=== PATIENT | female | born 1995 ===

== ENCOUNTER 2024-06-11 01:59 | Inpatient (IN) ==
[2024-06-11] MEDS: OXYTOCIN 10 UNITS/ML VIAL IM ONE (02:35)
[2024-06-11] MEDS: miSOPROStoL 200 MCG TAB PR ONE (02:35)
[2024-06-11] MEDS ORDERED: OXYTOCIN 30 UNITS/NSS 30 UNITS/500 ML BAG IV PRN ×2 (03:08→19:42)
[2024-06-11] MEDS ORDERED: OXYTOCIN 10 UNITS/ML 10ML VIAL IM ONE (03:12)
[2024-06-11 03:41] LABS: Hematocrit (blood only) 31.7 % (37.0-47.0); Hemoglobin 10.2 g/dl (12.0-16.0); Mean Corpuscular Hemoglobin 25.7 pg (25.0-34.0); Mean Corpuscular Hgb Conc 32.2 g/dL (32.0-36.0); Mean Corpuscular Volume 79.8 fL (80.0-100.0); Platelet Count 301 K/uL (130-400); RDW Coefficient of Variation 13.2 % (11.5-14.5); RDW Standard Deviation 37.5 fL (36.4-46.3); Red Blood Count 3.97 M/uL (4.20-5.40); White Blood Count 17.56 K/ul (4.8-10.8)
[2024-06-11 03:58] LABS: Albumin Level 3.1 gm/dl (3.4-5.0); BUN Creatinine Ratio 17.2 (10-20); Bilirubin,Total 0.5 mg/dl (0.2-1.0); Calcium 8.2 mg/dl (8.6-10.3); Total Protein 6.1 gm/dl (6.0-8.3)
[2024-06-11] MEDS: NIFEdipine 10 MG CAP PO STA (04:06)
[2024-06-11] MEDS ORDERED: NIFEdipine EXTENDED REL 30 MG TABCR PO STA (04:06)
[2024-06-11] MEDS ORDERED: LABETALOL HCL IV 5 MG/ML 20ML IV STA (04:06)
[2024-06-11] MEDS: LIDOCAINE 1% LOCAL 20 ML VIAL INFIL PRN (04:07)
[2024-06-11] MEDS: LIDOCAINE 1% LOCAL 20 ML VIAL ONE (04:12)
[2024-06-11] MEDS: LACTATED RINGER'S 1,000 ML IV PRN (04:40)
[2024-06-11] MEDS: MAGNESIUM SULFATE / WTR 40 GM/1,000 ML BAG IV SCH (04:42)
[2024-06-11] MEDS: MAG SULFATE 4GM BOLUS FROM BAG IV ONE (04:44)
[2024-06-11] MEDS: OXYTOCIN 10 UNITS/ML VIAL ONE (05:30)
[2024-06-11] MEDS: NIFEdipine EXTENDED REL 30 MG TABCR PO STA (06:04)
[2024-06-11] MEDS: LABETALOL HCL IV 5 MG/ML 20ML IV STA (06:05)
--- NOTE | 2024-06-11 07:02 | Delivery Summary ---
Vaginal Delivery Summary Date of Service June 11, 2024 Vaginal Delivery Summary and 2nd Degree LAC Patient presented in precipitous labor at 10 cm dilated 100% effaced and +2 station at time of arrival. Patient pushed over 2-3 contractions to deliver the head, shoulders and body quickly followed. was noted to have good tone but without spontaneous cry and a 30 second stimulation with delayed cord clamping was initiated. Cord was then double clamped and cut taken to the waiting nursery staff for evaluation. Cord blood obtained and attention was turned to delivery of placenta which delivered intact three-vessel cord gentle cord traction. On speculum the perineum vagina and cervix was noted be second- degree perineal laceration which was repaired with 3-0 Vicryl and traditional crown stitch. Needle sponge and instrument counts were correct at the completion of the case. Both mother and stable in the immediate post delivery timeframe. No complications noted and blood loss per QBL [facility] Vaginal Delivery Charge Delivery Type Details: and 2nd Degree LAC
--- NOTE | 2024-06-11 07:04 | Obstetrical Progress Note ---
Date of Service June 11, 2024 Assessment & Plan Admission and Anticipated Discharge Date Admission Date: June 11, 2024 Subjective Contacted by nurse after delivery due to acute elevation in blood pressure trending into the severe range. Preeclampsia labs were ordered which were within normal limits. Patient developed sustained blood pressures in severe range and was treated with nifedipine 30 as she did not have an IV at that time. We initiated magnesium and blood pressures were noted to trend down to the mild range again within about 30 minutes after the nifedipine dosing. Patient is denying any preeclampsia symptoms. Will continue to monitor and provide antihypertensive medications as indicated. Results & Data Vital Signs (Past 12 Hours) Vital Signs Temp Pulse Resp BP 06/11/24 04:31 107 H 06/11/24 04:31 184/105 H 06/11/24 04:14 113 H 06/11/24 04:14 170/109 H 06/11/24 03:59 111 H 06/11/24 03:59 173/108 H 06/11/24 03:52 18 06/11/24 03:44 115 H 06/11/24 03:44 174/107 H 06/11/24 03:40 18 06/11/24 03:31 111 H 06/11/24 03:31 168/98 H 06/11/24 03:29 111 H 06/11/24 03:29 168/98 H 06/11/24 03:25 18 06/11/24 03:16 36.6 C 18 06/11/24 03:14 114 H 06/11/24 03:14 163/95 H 06/11/24 03:05 115 H 165/98 H 06/11/24 03:04 113 H 159/102 H 06/11/24 03:03 113 H 166/107 H 06/11/24 03:02 121 H 161/108 H 06/11/24 03:01 110 H 158/104 H 06/11/24 03:00 107 H 155/104 H 06/11/24 02:59 109 H 158/106 H 06/11/24 02:55 18 06/11/24 02:43 112 H 149/76 H 06/11/24 02:42 116 H 175/103 H 06/11/24 02:40 36.6 C 18 PG Care Time/CCT Total # of Minutes Spent Total Time Spent with Patient: Total time spent is greater than 50% in coordination of care (as documented) at patient's floor/unit and/or counseling patient: Coding Level of Care Code None
[2024-06-11 13:10] LABS: Amphetamines+Metham, Urine Pos (Neg); Barbiturates, Urine Neg (Neg); Benzodiazepine, Urine Neg (Neg); Cocaine, Urine Neg (Neg); Fentanyl, Urine Neg (Neg); MDMA (Ecstacy), Urine Neg (Neg); Marijuana, Urine Neg (Neg); Methadone, Urine Neg (Neg); Opiate, Urine Neg (Neg); Phencyclidine, Urine Neg (Neg)
[2024-06-11] MEDS: IBUPROFEN 600 MG TAB PO PRN ×2 (15:27→20:05)
[2024-06-11] MEDS ORDERED: HYDROCORTISONE ACETATE 25 MG SUPP PR PRN (19:42)
[2024-06-11] MEDS ORDERED: bisacodyL 10 MG SUPP PR PRN (19:42)
[2024-06-11] MEDS ORDERED: DIPHTHER/TETAN/PERTUS Vaccine (Tdap, Adol/Adult) 0.5mL IM ONE (19:42)
[2024-06-11] MEDS ORDERED: ACETAMINOPHEN 325 MG TAB PO PRN (19:42)
[2024-06-11] MEDS: DOCUSATE SODIUM 100 MG CAP PO SCH (20:05)
[2024-06-11] MEDS: BENZOCAINE 20% SPRY 85 APPLN/85 GM CAN EXT PRN (20:05)
[2024-06-12] MEDS: LABETALOL HCL IV 5 MG/ML 20ML IV STA (02:24)
[2024-06-12] MEDS: NIFEdipine EXTENDED REL 30 MG TABCR PO SCH (02:30)
[2024-06-12 02:39] LABS: Hematocrit (blood only) 30.2 % (37.0-47.0); Hemoglobin 9.9 g/dl (12.0-16.0); Mean Corpuscular Hemoglobin 26.1 pg (25.0-34.0); Mean Corpuscular Hgb Conc 32.8 g/dL (32.0-36.0); Mean Corpuscular Volume 79.7 fL (80.0-100.0); Mean Platelet Volume 10.3 fL (9.4-12.4); Platelet Count 322 K/uL (130-400); RDW Coefficient of Variation 13.4 % (11.5-14.5); RDW Standard Deviation 38.4 fL (36.4-46.3); Red Blood Count 3.79 M/uL (4.20-5.40); White Blood Count 19.71 K/ul (4.8-10.8)
[2024-06-12] MEDS: LABETALOL HCL IV 5 MG/ML 20ML IV ONE (02:40)
[2024-06-12 03:02] LABS: Albumin Globulin Ratio 1.1 (0.9-2); BUN Creatinine Ratio 8.9 (10-20); Bilirubin,Total 0.2 mg/dl (0.2-1.0); Calcium 6.2 mg/dl (8.6-10.3); Creatinine Clr Calc Pharmacy 158.8 ml/min; Globulin 2.8 gm/dl (2.5-4.0); Magnesium Therapeutic L&D Only 5.2 mg/dL (4.0-8.0); Potassium 3.5 mmol/L (3.5-5.1); Total Protein 5.8 gm/dl (6.0-8.3)
[2024-06-12 06:20] LABS: Hematocrit (blood only) 28.7 % (37.0-47.0); Hemoglobin 9.5 g/dl (12.0-16.0); Mean Corpuscular Hemoglobin 26.3 pg (25.0-34.0); Mean Corpuscular Hgb Conc 33.1 g/dL (32.0-36.0); Mean Corpuscular Volume 79.5 fL (80.0-100.0); Mean Platelet Volume 10.6 fL (9.4-12.4); Platelet Count 312 K/uL (130-400); RDW Coefficient of Variation 13.5 % (11.5-14.5); RDW Standard Deviation 38.3 fL (36.4-46.3); Red Blood Count 3.61 M/uL (4.20-5.40); White Blood Count 17.78 K/ul (4.8-10.8)
--- NOTE | 2024-06-12 07:08 | Obstetrical Progress Note ---
Date of Service June 12, 2024 Subjective Sitting upright in bed, legs dangling, FOB at bedside holding baby. No c omplaints currently, feels much better off Mag, able to walk to BR and void spontaneously, planning to take shower soon. Physical Exam Constitutional Alert, NAD. Respiratory normal respiratory effort; no respiratory distress Cardiovascular Extremities: + edema (trace) Gastrointestinal (Abdomen) Soft, postgravid, fundus @ u Musculoskeletal Neg Lona's Skin No rashes Results & Data Vital Signs (Past 12 Hours) Vital Signs Temp Pulse Resp BP Pulse Ox 06/12/24 07:04 102 H 160/97 H 06/12/24 05:57 99 H 138/89 06/12/24 04:55 100 H 141/93 H 06/12/24 04:45 18 06/12/24 04:42 93 H 96 06/12/24 04:37 96 06/12/24 04:37 91 H 06/12/24 04:37 96 H 152/95 H 06/12/24 04:32 91 H 96 06/12/24 04:27 91 H 97 06/12/24 04:22 94 H 96 06/12/24 04:17 92 H 96 06/12/24 04:12 92 H 96 06/12/24 04:07 99 06/12/24 04:07 104 H 06/12/24 04:07 100 H 150/94 H 06/12/24 04:02 96 H 96 06/12/24 04:00 18 06/12/24 03:57 97 H 96 06/12/24 03:52 98 H 96 06/12/24 03:47 96 H 97 06/12/24 03:42 101 H 97 06/12/24 03:37 101 H 138/89 98 06/12/24 03:32 102 H 96 06/12/24 03:27 100 H 97 06/12/24 03:22 98 H 96 06/12/24 03:17 98 H 97 06/12/24 03:12 98 H 97 06/12/24 03:07 94 H 98 06/12/24 03:05 94 H 135/89 06/12/24 03:02 16 06/12/24 03:02 92 H 97 06/12/24 03:00 93 H 139/89 06/12/24 02:57 95 H 98 06/12/24 02:55 95 H 146/92 H 06/12/24 02:52 98 H 96 06/12/24 02:50 93 H 142/92 H 06/12/24 02:47 94 H 97 06/12/24 02:45 96 H 140/92 06/12/24 02:42 98 H 99 06/12/24 02:40 93 H 134/89 06/12/24 02:40 93 H 134/89 06/12/24 02:37 95 H 97 06/12/24 02:36 90 138/90 06/12/24 02:32 94 H 98 06/12/24 02:27 113 H 98 06/12/24 02:24 112 H 164/97 H 06/12/24 02:24 112 H 164/97 H 06/12/24 02:22 117 H 99 06/12/24 02:17 119 H 99 06/12/24 02:12 112 H 100 06/12/24 02:08 20 06/12/24 02:07 110 H 100 06/12/24 02:04 108 H 159/96 H 06/12/24 02:03 109 H 178/88 H 06/12/24 02:02 109 H 178/90 H 100 06/12/24 01:57 114 H 98 06/12/24 01:52 112 H 98 06/12/24 01:47 112 H 98 06/12/24 01:42 112 H 97 06/12/24 01:37 113 H 98 06/12/24 01:32 110 H 99 06/12/24 01:27 110 H 98 06/12/24 01:22 108 H 98 06/12/24 01:17 105 H 97 06/12/24 01:12 103 H 97 06/12/24 01:07 106 H 97 06/12/24 01:02 110 H 98 06/12/24 01:01 16 06/12/24 01:01 110 H 141/88 H 06/12/24 00:57 107 H 97 06/12/24 00:52 105 H 97 06/12/24 00:47 108 H 97 06/12/24 00:42 114 H 97 06/12/24 00:37 111 H 98 06/12/24 00:32 111 H 99 06/12/24 00:27 112 H 98 06/12/24 00:22 117 H 98 06/12/24 00:17 124 H 97 06/12/24 00:12 115 H 98 06/12/24 00:08 18 06/12/24 00:08 115 H 154/99 H 06/12/24 00:07 116 H 98 06/12/24 00:02 118 H 98 06/11/24 23:57 98 06/11/24 23:57 115 H 06/11/24 23:52 98 06/11/24 23:52 115 H 06/11/24 23:47 98 06/11/24 23:47 113 H 06/11/24 23:42 97 06/11/24 23:42 113 H 06/11/24 23:37 99 06/11/24 23:37 115 H 06/11/24 23:32 99 06/11/24 23:32 111 H 06/11/24 23:27 93 06/11/24 23:27 109 H 06/11/24 23:26 89 L 06/11/24 23:26 115 H 06/11/24 23:22 98 06/11/24 23:22 113 H 06/11/24 23:17 99 06/11/24 23:17 110 H 06/11/24 23:12 99 06/11/24 23:12 107 H 06/11/24 23:07 100 06/11/24 23:07 109 H 06/11/24 23:02 99 06/11/24 23:02 110 H 06/11/24 23:02 109 H 06/11/24 23:02 151/93 H 06/11/24 22:57 97 06/11/24 22:57 111 H 06/11/24 22:52 100 06/11/24 22:52 108 H 06/11/24 22:50 98.2 F 18 06/11/24 22:47 100 06/11/24 22:47 109 H 06/11/24 22:42 100 06/11/24 22:42 104 H 06/11/24 22:37 99 06/11/24 22:37 101 H 06/11/24 22:32 98 06/11/24 22:32 107 H 06/11/24 22:27 97 06/11/24 22:27 99 H 06/11/24 22:22 97 06/11/24 22:22 96 H 06/11/24 22:17 97 06/11/24 22:17 95 H 06/11/24 22:12 98 06/11/24 22:12 97 H 06/11/24 22:07 97 06/11/24 22:07 94 H 06/11/24 22:02 97 06/11/24 22:02 100 H 06/11/24 22:01 99 H 06/11/24 22:01 143/86 H 06/11/24 22:00 16 06/11/24 21:57 97 06/11/24 21:57 98 H 06/11/24 21:52 97 06/11/24 21:52 99 H 06/11/24 21:47 97 06/11/24 21:47 100 H 06/11/24 21:42 97 06/11/24 21:42 104 H 06/11/24 21:37 98 06/11/24 21:37 105 H 06/11/24 21:32 97 06/11/24 21:32 112 H 06/11/24 21:27 97 06/11/24 21:27 106 H 06/11/24 21:22 98 06/11/24 21:22 106 H 06/11/24 21:17 99 06/11/24 21:17 110 H 06/11/24 21:12 98 06/11/24 21:12 108 H 06/11/24 21:07 98 06/11/24 21:07 110 H 06/11/24 21:07 110 H 06/11/24 21:07 152/72 H 06/11/24 21:04 94 06/11/24 21:04 117 H 06/11/24 21:02 98 06/11/24 21:02 113 H 06/11/24 21:02 111 H 06/11/24 21:02 171/105 H 06/11/24 21:00 16 06/11/24 20:57 96 06/11/24 20:57 117 H 06/11/24 20:52 97 06/11/24 20:52 115 H 06/11/24 20:47 98 06/11/24 20:47 112 H 06/11/24 20:42 98 06/11/24 20:42 113 H 06/11/24 20:37 99 06/11/24 20:37 114 H 06/11/24 20:32 98 06/11/24 20:32 114 H 06/11/24 20:27 98 06/11/24 20:27 114 H 06/11/24 20:22 99 06/11/24 20:22 112 H 06/11/24 20:17 99 06/11/24 20:17 112 H 06/11/24 20:16 93 06/11/24 20:16 112 H 06/11/24 20:12 99 06/11/24 20:12 112 H 06/11/24 20:07 98 06/11/24 20:07 115 H 06/11/24 20:02 99 06/11/24 20:02 109 H 06/11/24 20:01 108 H 06/11/24 20:01 140/97 06/11/24 20:00 16 06/11/24 20:00 16 06/11/24 20:00 91 06/11/24 20:00 107 H 06/11/24 19:57 99 06/11/24 19:57 111 H 06/11/24 19:52 99 06/11/24 19:52 110 H 06/11/24 19:47 99 06/11/24 19:47 102 H 06/11/24 19:42 100 06/11/24 19:42 104 H 06/11/24 19:37 100 06/11/24 19:37 108 H 06/11/24 19:35 97.9 F 12 06/11/24 19:32 100 06/11/24 19:32 104 H 06/11/24 19:27 100 06/11/24 19:27 101 H 06/11/24 19:26 91 06/11/24 19:26 111 H 06/11/24 19:22 100 06/11/24 19:22 104 H 06/11/24 19:17 100 06/11/24 19:17 110 H 06/11/24 19:12 100 06/11/24 19:12 104 H 06/11/24 19:07 99 06/11/24 19:07 106 H
[2024-06-12] MEDS: NIFEdipine EXTENDED REL 30 MG TABCR PO STA (07:23)
[2024-06-12] MEDS: PRENATAL VITAMIN 1 TAB PO SCH (07:23)
[2024-06-12] MEDS: bisacodyL 5 MG TABEC PO SCH (20:08)
[2024-06-13 06:14] LABS: Hematocrit (blood only) 32.3 % (37.0-47.0); Hemoglobin 10.5 g/dl (12.0-16.0)
--- NOTE | 2024-06-13 07:38 | Obstetrical Progress Note ---
Date of Service June 13, 2024 Assessment & Plan (1) care and examination: PPD 2 doing well. Is looking forward to discharge. Is now on 60mg ER Procardia, will monitor blood pressures this morning. 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 Is feeling well at the moment. Previously took medications for bipolar disorder, stopped taking all these with her first , and has felt well since so she never restarted. She does not have a primary care physician in the area, nor does she have a psychiatrist. Will ask for psychiatry consult in the hospital prior to her leaving, since she has no outside resources - since if psychosis occurs it would be likely to happen before she'd be able to get established outpatient. She is aware that if she has symptoms, she should present to the ER immediately. Will be checking in with her in OB office on Sunday or Sunday for BP check and will also want to reeval psych symptoms with her at that time. Rx Procardia ER 60mg to [facility]. Subjective Ambulation: ambulating normally Voiding: no voiding problems Diet Tolerance:: regular diet Lochia:: Moderate Review of Systems All systems reviewed & are unremarkable except as noted in HPI & below Physical Exam Constitutional WD/WN, vitals as above no acute distress Respiratory normal respiratory effort Cardiovascular Rate/Rhythm: regular rate and regular rhythm Gastrointestinal (Abdomen) Inspection/Auscultation: abdomen normal to inspection; abdomen not distended Percussion/Palpation: abdomen soft Genitourinary OB Exam Abdomen: + fundal height Fundus: + firm; not tender Results & Data Vital Signs (Past 12 Hours) Vital Signs Temp Pulse Resp BP Pulse Ox O2 Del Method 06/13/24 00:15 36.5 C 112 H 17 141/89 H 100 Room Air 06/12/24 22:14 149/99 H 06/12/24 21:30 156/104 H 06/12/24 20:35 36.7 C 102 H 16 154/104 H 99 Room Air
[2024-06-13] MEDS: NIFEdipine EXTENDED REL 30 MG TABCR PO SCH (08:51)
[2024-06-13] MEDS: NIFEdipine 10 MG CAP PO STA (10:24)
[2024-06-13] MEDS: MEASLES, MUMPS & RUBELLA VIRUS VACCINE (MMR) 0.5ML VIAL SQ ONE (14:38)
--- NOTE | 2024-06-13 15:48 | Obstetrical Progress Note ---
Date of Service June 13, 2024 Assessment & Plan (1) Pre-eclampsia, severe: (2) hypertension: Plan Not pleased with her response to anti-htn. BP remains high. Will given labetalol stat and see how she responds. Not likely good dc candidate with need for further bp management. Will try to visit again soon to address concerns. Based on bp response will dose accordingly. Admission and Anticipated Discharge Date Admission Date: June 11, 2024 Subjective Earlier attempted to visit with pt but she was in BR. Partner in room with baby. Had 60mg XL procardia this am and due to high severe range bp, dosed a 10mg stat fast acting nifedipine. Her bp after that was 130s/80s and planned 4hr bp. Now 4hr bp 154/96. no sx per nurse. history of preeclampsia with severe features (bp) and did get magnesium pp. Results & Data Vital Signs (Past 12 Hours) Vital Signs Temp Pulse Resp BP BP Pulse Ox O2 Del Method 06/13/24 14:15 98.2 F 120 H 16 100 Room Air 06/13/24 11:30 138/85 06/13/24 10:12 155/97 H 150/105 H 06/13/24 08:47 98.1 F 114 H 18 137/100 145/105 H 98 Room Air PG Care Time/CCT Total # of Minutes Spent Total Time Spent with Patient: Total time spent is greater than 50% in coordination of care (as documented) at patient's floor/unit and/or counseling patient: Coding Level of Care Code None Diagnoses Pre-eclampsia, severe O14.10 hypertension O16.5
[2024-06-13] MEDS: LABETALOL HCL 200 MG TAB PO STA (15:57)
[2024-06-13 18:54] VITALS: RESP 18
[2024-06-13] MEDS: LABETALOL HCL 200 MG TAB PO SCH (21:13)
[2024-06-13 22:47] VITALS: PULSE 96; TEMP 97.5; O2SAT 97
--- NOTE | 2024-06-14 08:04 | Obstetrical Progress Note ---
Date of Service June 14, 2024 Assessment & Plan (1) care and examination: (2) hypertension: (3) Pre-eclampsia, severe: Plan stable, doing well this am. no concerns. we did change her bp meds yesterday as was on nifed and bp not improved and now using labetalol. bp overnight ok but need to see this am results and likely ok to dc home. will need to send the script, already cancelled the nifed script. instructions reviewed. has f/u planned for in our office for bp check and mood check given h/o pp psychosis with last preg. psych has seen her and has plan to f/u with [facility] for [facility]h. Addendum: am bps were elevated 151/100 and 144/100, will add 200mg po labetalol now and change her dosing to 400mg bid. Day #:: 3 Subjective Ambulation: ambulating normally Voiding: no voiding problems Diet Tolerance:: regular diet Lochia:: Small Feeding Type:: bottle feeding denies complaints. ready for dc. has f/u sched with us on and has [facility] plan for f/u with h/o pp psychosis Constitutional: + as per Subjective / HPI Physical Exam Constitutional WD/WN, vitals as above Respiratory normal respiratory effort, lungs clear to auscultation Cardiovascular Rate/Rhythm: regular rate and regular rhythm Gastrointestinal (Abdomen) Inspection/Auscultation: abdomen normal to inspection Percussion/Palpation: abdomen soft Fundus firm 2cm down Musculoskeletal nt calves +2 pedal edema Neurologic grossly normal Psychiatric A+Ox3, euthymic affect Results & Data Vital Signs (Past 12 Hours) Vital Signs Temp Pulse Resp BP Pulse Ox O2 Del Method 06/13/24 22:45 97.5 F L 96 H 18 137/85 97 Room Air
[2024-06-14] MEDS: LABETALOL HCL 200 MG TAB PO STA (08:15)
[2024-06-14 12:09] VITALS: BP 115/80
[2024-06-14 13:37] LABS: Amphetamine Urine, Confirm 1245 ng/mL (<250); Methamphetamine, Ur Confirm 6557 ng/mL (<250)
[2024-06-14] MEDS ORDERED: LABETALOL HCL 200 MG TAB PO SCH (21:00)
== END 2024-06-14 17:00 | disposition home or self-care (01) | DRG 807 ==
LOC: OPB 01:59 → 4S1 02:00 → 4E1 06-12 10:05